=== PATIENT | female | born 1970 | race Caucasian/White ===

== ENCOUNTER 2017-12-19 16:58 | Emergency (ER) | payer MEDICARE, MEDICAID ==
[~2017-12-19] VITALS: Ht 152.4 cm; Wt 7.2 kg
[~2017-12-19 16:58] MED LIST: CYCL-1 PO; HYDR1TAB PO
[2017-12-19 17:18] VITALS: BP 116/91
[2017-12-19] MEDS ORDERED: ACYC-202 PO (18:50)
== END 2017-12-19 19:22 | disposition home or self-care (01) ==
LOC: ER 16:59
DX: B00.1 Herpesviral vesicular dermatitis (principal); G89.29 Other chronic pain; Z90.710 Acquired absence of both cervix and uterus; Z98.890 Other specified postprocedural states; Z98.84 Bariatric surgery status; Z88.6 Allergy status to analgesic agent; Z88.5 Allergy status to narcotic agent
CPT/HCPCS: 99283